=== PATIENT | male | born 1970 | race Caucasian/White ===

== ENCOUNTER 2021-09-29 08:26 | Outpatient (CLI) | payer MEDICARE, SELFPAY ==
[2021-09-29 13:51] LABS: Chloride* 105 mmol/L (96-114); Potassium* 4.6 mmol/L (3.6-5.1); Sodium* 138 mmol/L (135-149)
[2021-09-29 13:54] LABS: Blood Urea Nitrogen* 18 mg/dL (7-30); Carbon Dioxide* 25 mmol/L (20-32); Cholesterol* 126 mg/dL (90-199); Creatinine* 0.7 mg/dL (0.5-1.5); Estimated Glomerular Filt Rate 110.87
[2021-09-29 13:55] LABS: Calcium* 9.2 mg/dL (8.4-10.6); Glucose* 120 mg/dL (60-115); HDL Cholesterol* 40 mg/dL (>=40); LDL Cholesterol Calculated 75 mg/dL (<100); Triglycerides* 57 mg/dL (40-149)
[2021-09-29 14:13] LABS: Creatinine Urine 109.3 mg/dL
[2021-09-29 14:16] LABS: Microalbumin Creatinine Ratio 0 mg/g (0-30); Microalbumin Urine 1 mg/dL
[2021-09-29 14:23] LABS: PSA Screen* 1.71 ng/mL (0.10-4.00)
== END 2021-09-29 08:27 | disposition home or self-care (01) ==
PROVIDERS: PCP Emergency Medicine; Visit Provider Emergency Medicine
DX: E11.9 Type 2 diabetes mellitus without complications (principal); E78.2 Mixed hyperlipidemia; I10 Essential (primary) hypertension; Z12.5 Encounter for screening for malignant neoplasm of prostate; G80.9 Cerebral palsy, unspecified
CPT/HCPCS: 80048; 80061; 82043; 82570; 84153

== ENCOUNTER 2021-11-11 06:33 | Outpatient (CLI) | payer MEDICARE, SELFPAY ==
[2021-11-11 07:51] LABS: SARS PCR* Negative SARS-CoV-2 (Negative)
== END 2021-11-11 06:34 | disposition home or self-care (01) ==
LOC: OP CLINIC 06:35
PROVIDERS: PCP Emergency Medicine; Visit Provider Internal Medicine
DX: Z12.11 Encounter for screening for malignant neoplasm of colon (principal)
CPT/HCPCS: 45378; 87635; J2250; J3010